=== PATIENT | male | born 1960 | race Caucasian/White ===

== ENCOUNTER 2020-05-23 08:56 | Observation (INO) | payer OTHER ==
[~2020-05-23] VITALS: Ht 185.4 cm; Wt 157.4 kg
[2020-05-23 09:31] LABS: BASOPHILS # (AUTO) 0.1 (0.0-0.1); BASOPHILS % 0.8 % (0.0-1.0); EOSINOPHILS # (AUTO) 0.1 (0.0-0.4); EOSINOPHILS % 1.2 % (0.0-6.0); HEMATOCRIT 38.5 % (38.2-49.6); HEMOGLOBIN 12.8 g/dL (14.0-18.0); LYMPHOCYTES # (AUTO) 1.4 (1.0-3.2); LYMPHOCYTES % 15.9 % (18.0-39.1); MEAN CORPUSCULAR HEMOGLOBIN 31.1 pg (28-32); MEAN CORPUSCULAR HGB CONC 33.2 g/dL (31-35); MEAN CORPUSCULAR VOLUME 93.4 fL (81-99); MONOCYTES # (AUTO) 0.5 (0.2-0.8); MONOCYTES % 5.9 % (4.4-11.3); NEUTROPHILS # (AUTO) 6.6 (2.1-6.9); NEUTROPHILS % 75.7 % (38.7-80.0); PLATELET COUNT 248 x10e3/uL (140-360); RED BLOOD COUNT 4.12 x10e6/uL (4.3-5.7)
[2020-05-23 09:47] LABS: ALBUMIN 4.1 g/dL (3.5-5.0); ALBUMIN/GLOBULIN RATIO 1.4 (0.8-2.0); ANION GAP 16.9 mmol/L (8-16); CALCIUM 9.1 mg/dL (8.4-10.2); CREATININE, SERUM 3.64 mg/dL (0.72-1.25)
[2020-05-23 09:49] LABS: POTASSIUM 2.9 mmol/L (3.5-5.1)
[2020-05-23] MEDS ORDERED: POTASSIUM CHLORIDE 20 MEQ TAB CR PO STA (10:06)
--- NOTE | 2020-05-23 10:08 | Emergency Department Note ---
History of Present Illnes History of Present Illness Chief Complaint: Respiratory History of Present Illness This is a 60 year old male arrived to the ED with 2 week history of a cough generalized malaise and weakness. Chief Complaint Comment PATIENT IN FROM HOME WITH COMPLAINTS OF SHORTNESS OF BREATH AT REST AND COUGH X 2 WEEKS; STATES THAT HE HAS AFIB, HTN, AND AN ENLARGED HEART SO HAS HAD SHORTNESS OF BREATH ON EXERTION X 1 YEAR. PATIENT APPEARS IN NO DSITRESS, TACHYPNEIC AND TACHYCARDIC IN TRIAGE, DENIES PAIN Historian: Patient Arrival Mode: Car Onset (how long ago): day(s) Radiation: Reports non-radiation Onset quality: gradual Duration (how long): week(s) Timing of current episode: constant Progression: worsening Chronicity: recurrent Exacerbating factors: movement Associated symptoms: Reports cough, Reports fever/chills, Reports headaches Past Medical/Family History Physician Review I have reviewed the patient's past medical and family history. Any updates have been documented here. Past Medical History Recent Fever: No Clinical Suspicion of Infectio: Yes New/Unexplained Change in Ment: No Past Medical History: Hypertension, A-Fib, Osteoarthritis Other Medical History: GOUT ENLARGED HEART Past Surgical History: None Social History Smoking Cessation: Never Smoker Review of Systems Review of Systems Constitutional: Reports as per HPI, Reports fever EENTM: Reports no symptoms Cardiovascular: Reports no symptoms Respiratory: Reports as per HPI Gastrointestinal: Reports no symptoms Genitourinary: Reports no symptoms Musculoskeletal: Reports no symptoms Integumentary: Reports no symptoms Neurological: Reports no symptoms Psychological: Reports no symptoms Endocrine: Reports no symptoms Hematological/Lymphatic: Reports no symptoms Physical Exam Related Data Allergies: Coded Allergies: No Known Allergies (Unverified , 05/23/20) Triage Vital Signs Vital Signs Date Time Temp Pulse Resp B/P (MAP) Pulse Ox O2 Delivery O2 Flow Rate FiO2 05/23/20 09:10 98.0 117 26 97/56 96 Room Air Vital signs reviewed: Yes Physical Exam CONSTITUTIONAL Constitutional: Present well-developed, Present well-nourished, Present obese HENT HENT: Present normocephalic, Present atraumatic, Present oropharynx clear/moist, Present nose normal HENT L/R: Present left ext ear normal, Present right ext ear normal EYES Eyes: Reports PERRL, Reports conjunctivae normal NECK Neck: Present ROM normal PULMONARY Pulmonary: Present effort normal, Present breath sounds normal CARDIOVASCULAR Cardiovascular: Present regular rhythm, Present heart sounds normal, Present capillary refill normal, Present normal rate GASTROINTESTINAL Abdominal: Present soft, Present nontender, Present bowel sounds normal GENITOURINARY Genitourinary: Present exam deferred SKIN Skin: Present warm, Present dry MUSCULOSKELETAL Musculoskeletal: Present ROM normal NEUROLOGICAL Neurological: Present alert, Present oriented x 3, Present no gross motor or sensory deficits PSYCHOLOGICAL Psychological: Present mood/affect normal, Present judgement normal Results Laboratory Result Diagram: 05/23/2020 05/23/20 0920 Laboratory Laboratory Tests Test 05/23/20 09:20 White Blood Count 8.64 x10e3/uL (4.8-10.8) Red Blood Count 4.12 x10e6/uL (4.3-5.7) Hemoglobin 12.8 g/dL (14.0-18.0) Hematocrit 38.5 % (38.2-49.6) Mean Corpuscular Volume 93.4 fL (81-99) Mean Corpuscular Hemoglobin 31.1 pg (28-32) Mean Corpuscular Hemoglobin Concent 33.2 g/dL (31-35) Red Cell Distribution Width 14.0 % (11.7-14.4) Platelet Count 248 x10e3/uL (140-360) Neutrophils (%) (Auto) 75.7 % (38.7-80.0) Lymphocytes (%) (Auto) 15.9 % (18.0-39.1) Monocytes (%) (Auto) 5.9 % (4.4-11.3) Eosinophils (%) (Auto) 1.2 % (0.0-6.0) Basophils (%) (Auto) 0.8 % (0.0-1.0) Neutrophils # (Auto) 6.6 (2.1-6.9) Lymphocytes # (Auto) 1.4 (1.0-3.2) Monocytes # (Auto) 0.5 (0.2-0.8) Eosinophils # (Auto) 0.1 (0.0-0.4) Basophils # (Auto) 0.1 (0.0-0.1) Absolute Immature Granulocyte (auto 0.04 x10e3/uL (0-0.1) Sodium Level 138 mmol/L (136-145) Potassium Level 2.9 mmol/L (3.5-5.1) Chloride Level 98 mmol/L (98-107) Carbon Dioxide Level 26 mmol/L (22-29) Anion Gap 16.9 mmol/L (8-16) Blood Urea Nitrogen 46 mg/dL (7-26) Creatinine 3.64 mg/dL (0.72-1.25) Estimat Glomerular Filtration Rate 17 ML/MIN (60-) BUN/Creatinine Ratio 13 (6-25) Glucose Level 216 mg/dL (74-118) Calcium Level 9.1 mg/dL (8.4-10.2) Total Bilirubin 0.9 mg/dL (0.2-1.2) Aspartate Amino Transf (AST/SGOT) 13 IU/L (5-34) Alanine Aminotransferase (ALT/SGPT) 13 IU/L (0-55) Alkaline Phosphatase 45 IU/L (40-150) Creatine Kinase 41 IU/L (30-200) Total Protein 7.1 g/dL (6.5-8.1) Albumin 4.1 g/dL (3.5-5.0) Globulin 3.0 g/dL (2.3-3.5) Albumin/Globulin Ratio 1.4 (0.8-2.0) Imaging Imaging results reviewed: Yes Impressions IMPRESSION: No focal pneumonia or pulmonary edema. Signed by: Catie Navarro MD on 05/23/2020 10:12 AM Procedures 12 Lead ECG Interpretation ECG Interpretation : ECG: ECG 1 Industrial Editor: Interpreted by ED physician Prior ECG tracings: reviewed Rhythm: atrial fibrillation QRS axis: normal Clinical Impression: abnormal ECG Assessment & Plan Medical Decision Making MDM 60-year-old male arrives the ED two-week history of cough chest pain generalized malaise/shortness of breath. Patient required 2 L supplement oxygen. Concerns of possible PE. Patient's VQ scan pending. Patient admitted to Dr. Mathew for follow -up VQ scan and cardiac markers. Assessment & Plan Final Impression: (1) Dyspnea (2) Chest pain Depart Disposition: ADMITTED Last Vital Signs Date Time Temp Pulse Resp B/P (MAP) Pulse Ox O2 Delivery O2 Flow Rate FiO2 05/23/20 09:10 98.0 117 26 97/56 96 Room Air MARTINE MUJICA DO May 23, 2020 10:09
[2020-05-23] MEDS ORDERED: POTASSIUM CHLORIDE 10MEQ/100ML 100 ML IV ONE (10:15)
--- NOTE | 2020-05-23 10:15 | Diagnostic Imaging Report ---
EXAMINATION: CHEST SINGLE (PORTABLE) INDICATION: Shortness of breath COMPARISON: None FINDINGS: LINES/TUBES:None LUNGS:The lungs are well-inflated. No focal consolidation or pulmonary edema. PLEURA:No pleural effusion or pneumothorax. MEDIASTINUM:The cardiomediastinal silhouette appears normal in size and shape. BONES/SOFT TISSUES:No acute osseous injury. ABDOMEN:No free air under the diaphragm. IMPRESSION: No focal pneumonia or pulmonary edema. Signed by: Catie Navarro MD on 05/23/2020 10:12 AM
[2020-05-23] MEDS ORDERED: SODIUM CHLORIDE 0.9% 1000ML 1,000 ML IV STA (10:26)
--- NOTE | 2020-05-23 18:46 | Diagnostic Imaging Report ---
Perfusion Lung Scan NOTE: Lung ventilation studies with xenon are not being performed per the recommendation of the Society of Nuclear Medicine and Molecular Imaging. It is not possible to be certain that the ventilation system is adequately disinfected. Ventilation studies with Tc-99m DTPA particles is contraindicated because the delivery by nebulization generates too many water droplets from the patient's airway. Clinical Information: Shortness of breath Comparison: Chest radiograph Discussion: Ventilation images were not obtained. See note above. Perfusion images of the lungs were obtained in multiple projections following intravenous administration of approximately 6.6 mCi of Tc-99m MAA. Distribution of tracer is irregular throughout the lungs. There are no segmental perfusion defects of any size. The cardiomediastinal silhouette is unremarkable. Impression: 1. Scan findings represent a VERY LOW probability for acute pulmonary embolic disease based on the perfusion-only PIOPED II criteria. 2. Scan findings are compatible with diffuse parenchymal and/or obstructive lung disease. Signed by: Dr. Nancy Samuel M.D. on 05/23/2020 6:42 PM
[2020-05-23 20:00] VITALS: BP 143/75
[2020-05-23] MEDS ORDERED: ALLOPURINOL100 MG PO (20:15)
[2020-05-23] MEDS ORDERED: ELIQUIS5 MG PO (20:15)
[2020-05-23] MEDS ORDERED: LO-DOSE ASPIRIN81 MG PO (20:15)
[2020-05-23] MEDS ORDERED: LISINOPRIL-HCT1 EAC2 PO (20:15)
[2020-05-23 20:18] VITALS: BP 125/84
[2020-05-23 21:34] VITALS: BP 143/75
[2020-05-23] MEDS ORDERED: HYDRALAZINE HCL25 MG PO (21:50)
[2020-05-24] VITALS (7 sets, daily range): BP systolic 111–158; BP diastolic 60–96
[2020-05-24 00:15] LABS: CREATINE KINASE MB 2.6 ng/mL (0-5.0)
[2020-05-24 05:13] LABS: BASOPHILS % 0.6 % (0.0-1.0); EOSINOPHILS # (AUTO) 0.2 (0.0-0.4); EOSINOPHILS % 2.4 % (0.0-6.0); HEMATOCRIT 35.4 % (38.2-49.6); HEMOGLOBIN 11.9 g/dL (14.0-18.0); LYMPHOCYTES # (AUTO) 1.3 (1.0-3.2); LYMPHOCYTES % 19.4 % (18.0-39.1); MEAN CORPUSCULAR HEMOGLOBIN 32.1 pg (28-32); MEAN CORPUSCULAR HGB CONC 33.6 g/dL (31-35); MEAN CORPUSCULAR VOLUME 95.4 fL (81-99); MONOCYTES # (AUTO) 0.6 (0.2-0.8); MONOCYTES % 9.3 % (4.4-11.3); NEUTROPHILS # (AUTO) 4.4 (2.1-6.9); NEUTROPHILS % 67.8 % (38.7-80.0); PLATELET COUNT 185 x10e3/uL (140-360); RED BLOOD COUNT 3.71 x10e6/uL (4.3-5.7); RED CELL DISTRIBUTION WIDTH 13.9 % (11.7-14.4)
[2020-05-24 05:38] LABS: ALBUMIN 3.7 g/dL (3.5-5.0); ALBUMIN/GLOBULIN RATIO 1.3 (0.8-2.0); ANION GAP 13.2 mmol/L (8-16); CALCIUM 8.7 mg/dL (8.4-10.2); CREATININE, SERUM 2.5 mg/dL (0.72-1.25); POTASSIUM 3.2 mmol/L (3.5-5.1)
[2020-05-24 08:54] LABS: CREATINE KINASE MB 2.4 ng/mL (0-5.0)
[2020-05-24] MEDS ORDERED: PNEUMOCOCCAL VACCINE POLYVALENT 23 MCG/0.5 ML VIAL IM SCH (10:00)
[2020-05-24] MEDS ORDERED: INFLUENZA VIRUS VAC SPLIT INJ 0.5 ML SYR IM SCH (10:00)
[2020-05-24] MEDS: HYDRALAZINE HCL 100 MG TABLET PO SCH ×2 (15:46→21:45)
[2020-05-24] MEDS: APIXAB 2.5 MG TABLET PO SCH (15:47)
[2020-05-24 16:40] LABS: BILIRUBIN,URINE NEGATIVE (NEGATIVE); CLARITY,URINE CLEAR (CLEAR); COLOR,URINE YELLOW (YELLOW); KETONES,URINE NEGATIVE (NEGATIVE); LEUKOCYTE ESTERASE ,URINE NEGATIVE (NEGATIVE); NITRITE,URINE NEGATIVE (NEGATIVE); PROTEIN,URINE DIPSTICK NEGATIVE (NEGATIVE); URINE UROBILINOGEN 0.2 mg/dL (0.2 - 1)
[2020-05-24 16:50] LABS: CREATININE,URINE RANDOM 116.83 mg/dL (63-166); TOTAL PROTEIN, URINE 8.5 mg/dL (1-14)
[2020-05-24] MEDS ORDERED: APIXABAN 5 MG TABLET PO SCH (17:00)
--- NOTE | 2020-05-24 17:37 | Consultation ---
DATE OF CONSULTATION: Cardiology Consult HISTORY OF PRESENT ILLNESS: A 60-year-old male with primary history of hypertension, chronic atrial fibrillation (on apixaban), CKD, and obesity, admitted complaining of shortness of breath, worsens with activities, accompanied with chest pressure, palpitations, dizziness, and near syncope. The patient denies having any GI symptoms. The patient reports he had cardiac cath 10 years ago and the last time he was told that he has cardiomegaly/enlarged heart. The patient last seen his bomb squad officer about a year ago and failed to make followup appointments after that. PAST MEDICAL HISTORY: Hypertension, chronic atrial fibrillation, CKD, and obesity. PAST SURGICAL HISTORY: Denies any cardiac procedures or any cardiac intervention. FAMILY HISTORY: Positive for heart disease. SOCIAL HISTORY: The patient is a nonsmoker. No alcohol use or any illicit drug use. ALLERGIES: NO KNOWN DRUG ALLERGIES. HOME MEDICATIONS: Apixaban 5 mg p.o. b.i.d., aspirin 81 mg p.o. daily, hydralazine 100 mg p.o. t.i.d., lisinopril one tablet 10 mg p.o. b.i.d., and allopurinol 200 mg p.o. b.i.d. REVIEW OF SYSTEMS: Negative except those mentioned above. PHYSICAL EXAMINATION: VITAL SIGNS: 98.3 temperature, 88 pulse, respiratory rate 20, blood pressure is 142/94, and pulse oximetry 100% on room air. GENERAL: The patient is well developed, well nourished, in no acute respiratory distress. SKIN: Normal in appearance and texture. Warm and dry. HEENT: The patient's cranium is normocephalic and atraumatic. Pupils are equally round and reactive to light and accommodation. Sclerae anicteric. Ears are normal. Mucosa is moist. Throat is clear. NECK: Supple. Full range of motion. No cervical lymphadenopathy. No thyromegaly. Carotid artery upstroke is normal bilaterally without bruits. No JVD. RESPIRATORY: Normal respiratory effort at rest. LUNGS: Clear to auscultation bilaterally. No wheezing, no rales, or rhonchi. Diminished breath sounds or decreased air entry at the bases. CARDIOVASCULAR: S1 and S2 audible. Irregular rate. No significant murmurs heard. GI: Soft, nontender, and nondistended. Obese. Bowel sounds are present. EXTREMITIES: No edema. No clubbing or cyanosis. NEUROVASCULAR: Motor is intact. Pulses are palpable 1+ throughout. NEUROLOGIC: Motor and sensory examination of the upper and lower extremities are normal. Reflexes are normal and symmetrical bilaterally. LABORATORY DATA: WBC 6.55, hemoglobin 11.9, hematocrit 35.4, MCHC 32.1. Chemistry; sodium is 142, potassium is 3.2, BUN is 40, creatinine is 3.64 on admission. CK-MB 2.40. Troponin 0.018, 0.015, 0.013. Albumin is 4.1 and total protein 7.1. Estimated GFR 17. V/Q scan results, findings negative for pulmonary embolic disease and scan findings are compatible with diffuse parenchymal and/or obstructive lung disease. ASSESSMENT AND PLAN: The patient is admitted with dyspnea and worsening renal function (creatinine is equal to 3.64). The patient is currently on atrial fibrillation with controlled ventricular response. Troponin is negative. 1. Monitor on telemetry. Monitor hemodynamics. 2. Restart cardiac medications and anticoagulation with apixaban. 3. Obtain baseline EKG and obtain echocardiogram to evaluate valves and LV function. 4. Obesity. Counseled on weight loss. 5. Proceed with Nephrology consult. 6. We will continue to evaluate for any further need of any cardiac intervention. We will continue to follow. Thank you for this consultation. Dictated by Alma Abrams NP MD ARUNA Calixto/FRANK /[id number]
[2020-05-24] MEDS ORDERED: ACETAMINOPHEN 325 MG TAB PO PRN (23:45)
[2020-05-25] VITALS: BP 118/79
[2020-05-25 04:00] VITALS: BP 127/81
[2020-05-25] MEDS: HYDRALAZINE HCL 100 MG TABLET PO SCH (05:03)
[2020-05-25 05:26] LABS: BASOPHILS % 0.5 % (0.0-1.0); EOSINOPHILS # (AUTO) 0.2 (0.0-0.4); EOSINOPHILS % 2.5 % (0.0-6.0); HEMATOCRIT 34.7 % (38.2-49.6); HEMOGLOBIN 11.8 g/dL (14.0-18.0); LYMPHOCYTES # (AUTO) 1.4 (1.0-3.2); MEAN CORPUSCULAR HEMOGLOBIN 33.1 pg (28-32); MEAN CORPUSCULAR VOLUME 97.2 fL (81-99); MONOCYTES # (AUTO) 0.7 (0.2-0.8); MONOCYTES % 9.2 % (4.4-11.3); NEUTROPHILS % 68.4 % (38.7-80.0); PLATELET COUNT 166 x10e3/uL (140-360); RED BLOOD COUNT 3.57 x10e6/uL (4.3-5.7); RED CELL DISTRIBUTION WIDTH 14.1 % (11.7-14.4)
[2020-05-25 05:50] LABS: CALCIUM 8.9 mg/dL (8.4-10.2); CREATININE, SERUM 2.01 mg/dL (0.72-1.25)
[2020-05-25 06:18] LABS: ANION GAP 15.1 mmol/L (8-16)
[2020-05-25 06:27] LABS: POTASSIUM 4.1 mmol/L (3.5-5.1)
--- NOTE | 2020-05-25 06:48 | Consultation ---
DATE OF CONSULTATION: 05/24/2020 Nephrology Consultation CHIEF COMPLAINT: Chest pain. REASON FOR CONSULTATION: TAM on CKD. HISTORY OF PRESENT ILLNESS: A 60-year-old male, morbidly obese with history of hypertension, sees a lead business systems analyst at [facility], presents to the ED with complaints of chest pain morbidly obese is the cause of his CKD. No history of diabetes. No kxwy-tep-scigrpr medications. No NSAIDs. No herbal supplements. No chronic urinary tract infections. No kidney stones. No family history of renal disease. The patient is seen and evaluated at bedside on the medical floor. He is currently doing well with no other issues at this time. REVIEW OF SYSTEMS: Pertinent positives: Chest pain. The rest of the 14-point review of systems has been reviewed with the patient and are negative. ALLERGIES: NO KNOWN DRUG ALLERGIES. HOME MEDICATIONS: See med reconciliation form. PAST MEDICAL HISTORY: Hypertension and morbidly obese. PAST SURGICAL HISTORY: Reports none. FAMILY HISTORY: Hypertension and diabetes. SOCIAL HISTORY: No drugs. No alcohol. Does not smoke. Good social support. PHYSICAL EXAMINATION: VITAL SIGNS: Temperature 97.9, pulse , respiratory rate is 18, blood pressure 121/80, and pulse ox on room air. GENERAL: Not in acute distress. Alert and oriented x3. Cooperative on examination. HEENT: Head; normocephalic, atraumatic. Eyes; pupils are equal, round, and reactive to light bilaterally. Extraocular movements intact bilaterally. PULMONARY: Clear to auscultation bilaterally. No wheezing, no rales, no rhonchi, no crackles appreciated. CARDIOVASCULAR: Positive S1 and S2. No murmurs, rubs, or gallops appreciated. ABDOMEN: Soft, nondistended, and nontender to palpation. Bowel sounds present. MUSCULOSKELETAL: Strength is 5/5 throughout. No evidence of any muscle deficits on examination. SKIN: Intact. Warm to touch. Good cap refill. PSYCHIATRIC: Normal affect and mood. LABORATORY DATA: Finding show white count 6.5, hemoglobin 11.9, hematocrit 35, platelets of 185. Chemistry; sodium 142, potassium 3.2, chloride 103, bicarb 29, anion gap 13, BUN is 40, creatinine is 2.5, glucose is 101, calcium is within normal range. Troponins are negative. Total protein 6.6. Urinalysis was negative. SEROLOGY: Coronavirus not detected. IMAGING STUDIES: V/Q scan revealed low probability for pulmonary embolism. Chest x-ray negative. IMPRESSION: 1. Acute kidney injury on chronic kidney disease, stage 3. 2. History of longstanding hypertension. 3. Morbidly obese. PLAN: At this time, the patient does see a kidney doctor in [place], in which he reports that his underlying CKD is from hypertension and morbid obesity. At this time, his renal function downtrended with IV fluids. Electrolytes are stable. No need to get a renal ultrasound as he has had this done before. I will go ahead and get a urine protein to creatinine, microalbumin to creatinine ratio. I discussed the plan of care with the patient at bedside and he verbalized understanding. MD DEISI Sotomayor/FRANK /[id number]
--- NOTE | 2020-05-25 07:06 | NUR ---
Notified Moni Dumas NP that today is Day 2 Obs. She stated Jaida SMITH will be seeing pt today, and she will notify her and give her CM cell.
[2020-05-25 07:36] VITALS: BP 131/79
[2020-05-25 07:49] VITALS: BP 131/79
--- NOTE | 2020-05-25 08:17 | NUR ---
BELTRAN BEE STOCK SUPERVISOR CALLED AND STATED SHE CONSULTED DR. Sadi PEREZ AND DR. LINDO. SHE PLANS TO DC HOME LATER TODAY, PENDING THE CONSULTS EVAL FINDINGS AND PLAN.
[2020-05-25] MEDS: APIXAB 2.5 MG TABLET PO SCH (08:36)
[2020-05-25] MEDS ORDERED: FAMOTIDINE 20 MG TAB PO ONE (09:00)
[2020-05-25] MEDS ORDERED: ASPIRIN 81 MG ENTERIC COATED PO SCH (09:00)
[2020-05-25 09:24] VITALS: BP 131/79
[2020-05-25 11:25] VITALS: BP 149/90
--- NOTE | 2020-05-25 15:41 | Discharge Summary ---
CONSULTING PHYSICIANS: 1. Dr. Otf Dahl, metal mine inspector. 2. Dr. Taylor Hernandez, mainspring fabrication supervisor. PAST MEDICAL HISTORY: Hypertension and morbid obese, chronic atrial fibrillation, and chronic kidney disease stage 3. SURGICAL HISTORY: None. FAMILY HISTORY: Hypertension and diabetes. ALLERGIES: NO KNOWN ALLERGIES. HOSPITAL COURSE: This is a 60-year-old male, morbidly obese with history of hypertension, chronic atrial fibrillation on Eliquis, chronic kidney disease stage 3, got admitted with complaints of shortness of breath, worsening with activities, complaining of a chest pressure, palpitation, dizziness, and near syncope. The patient has been evaluated by the metal mine inspector and mainspring fabrication supervisor. His echo on 05/24/2020 shows EF of 55%. The patient has been cleared for discharge by metal mine inspector and mainspring fabrication supervisor. Vital signs include temperature of 97.8, heart rate of 82, blood pressure of 149/90, respiratory rate of 20, and oxygen saturation 100% on room air. DISCHARGE DIAGNOSES: 1. Hypertension. 2. Chronic atrial fibrillation. 3. Chronic kidney disease, stage 3. 4. Morbid obesity. I advised the patient to follow up with primary care physician, Cardiology and Nephrology as an outpatient in 1-2 weeks, also advised diet management. Dictated by Jaida Parker NP MD CARLITO Michaels/FRANK /[id number]
--- NOTE | 2020-05-26 03:42 | Progress Note ---
DATE: 05/25/2020 Nephrology Progress Note SUBJECTIVE: The patient doing well today with no complaints. LABORATORY DATA: CBC stable. Chemistry shows sodium 144, potassium 4.1, chloride 102, bicarb 21. Anion gap of 15. BUN is 34, creatinine is 2.01. Calcium is 8.9. Troponins are negative. IMAGING STUDIES: None. PHYSICAL EXAMINATION: VITAL SIGNS: Afebrile, normotensive, respiratory rate is good. GENERAL: Not in acute distress. Alert and oriented x3. Cooperative on examination. HEENT: Head; normocephalic, atraumatic. Eyes; pupils are equal, round, and reactive to light bilaterally. Extraocular movements intact bilaterally. Throat, no evidence of erythema or exudates in the posterior pharynx. Has poor dentition. NECK: Supple. Good range of motion. PULMONARY: Clear to auscultation bilaterally. No wheezing, no rales, no rhonchi, no crackles are appreciated. CARDIOVASCULAR: Positive S1, S2. No murmurs, rubs, or gallops appreciated. GASTROINTESTINAL: Abdomen is soft, nontender, nondistended to palpation. Bowel sounds are present. MUSCULOSKELETAL: Strength is 5/5 throughout. No evidence of any muscle deficits on examination. IMPRESSION: 1. Acute kidney injury, secondary to dehydration with underlying chronic kidney disease, stage 3. 2. Hypertension, longstanding. 3. Chest pain, atypical in nature. 4. Morbidly obese. PLAN: At this time, renal function down trending, back to his normal. He is currently at his bedside. Currently, his creatinine is at baseline. Electrolytes are stable. Continue same plan of care. Follow up with his primary core man. No further workup needed. MD DEISI Sotomayor/CESARIOL /[id number]
== END 2020-05-25 14:34 | disposition home or self-care (01) ==
LOC: ER 09:52 → ERHOLD 16:21 → MED/SURG 20:07
PROVIDERS: ADMIT Internal Medicine; ATTEND Internal Medicine
DX: I12.9 Hypertensive chronic kidney disease with stage 1 through stage 4 chronic kidney disease, or unspecified chronic kidney disease (principal); E66.01 Morbid (severe) obesity due to excess calories; Z68.42 Body mass index [BMI] 45.0-49.9, adult; N18.3 Chronic kidney disease, stage 3 (moderate); N17.9 Acute kidney failure, unspecified; I48.20 Chronic atrial fibrillation, unspecified; Z79.01 Long term (current) use of anticoagulants; J43.9 Emphysema, unspecified; Z11.59 Encounter for screening for other viral diseases
CPT/HCPCS: 36415 ×3; 71045; 78582; 80048; 80053 ×2; 81001; 82550 ×2; 82553 ×2; 82570; 83880; 84156; 84484 ×2; 85025 ×3; 93005 ×2; 93306; 99284; A9540; G0378 ×3; J3480; J7030; U0002

== ENCOUNTER 2021-02-24 14:06 | Emergency (ER) | payer BC ==
[~2021-02-24 14:06] MED LIST: ALLOPURINOL100 MG PO; ELIQUIS5 MG PO; HYDRALAZINE HCL25 MG PO; LISINOPRIL-HCT1 EAC2 PO; LO-DOSE ASPIRIN81 MG PO
[2021-02-24 14:38] LABS: BASOPHILS # (AUTO) 0.1 (0.0-0.1); BASOPHILS % 0.8 % (0.0-1.0); EOSINOPHILS # (AUTO) 0.2 (0.0-0.4); EOSINOPHILS % 1.9 % (0.0-6.0); HEMATOCRIT 43.3 % (38.2-49.6); HEMOGLOBIN 14.3 g/dL (14.0-18.0); LYMPHOCYTES # (AUTO) 1.1 (1.0-3.2); LYMPHOCYTES % 12.6 % (18.0-39.1); MEAN CORPUSCULAR HEMOGLOBIN 30.2 pg (28-32); MEAN CORPUSCULAR VOLUME 91.5 fL (81-99); MONOCYTES # (AUTO) 0.6 (0.2-0.8); MONOCYTES % 6.7 % (4.4-11.3); NEUTROPHILS # (AUTO) 6.5 (2.1-6.9); NEUTROPHILS % 77.6 % (38.7-80.0); PLATELET COUNT 204 x10e3/uL (140-360); RED BLOOD COUNT 4.73 x10e6/uL (4.3-5.7); RED CELL DISTRIBUTION WIDTH 13.5 % (11.7-14.4)
[2021-02-24 14:46] LABS: INR 0.98; PARTIAL THROMBOPLASTIN TIME 27.8 seconds (23.8-35.5); PROTHROMBIN TIME 13.6 seconds (11.9-14.5)
[2021-02-24 14:55] LABS: ALBUMIN 3.6 g/dL (3.5-5.0); ALBUMIN/GLOBULIN RATIO 0.9 (0.8-2.0); ANION GAP 13.6 mmol/L (8-16); CREATININE, SERUM 2.05 mg/dL (0.72-1.25); POTASSIUM 3.6 mmol/L (3.5-5.1)
== END 2021-02-24 19:00 | disposition home or self-care (01) ==
LOC: ER 14:06
DX: R55 Syncope and collapse (principal); R06.02 Shortness of breath; R42 Dizziness and giddiness; R53.83 Other fatigue; I48.91 Unspecified atrial fibrillation; N18.9 Chronic kidney disease, unspecified
CPT/HCPCS: 36415; 70450; 71045; 80053; 83880; 84484; 85025; 85610; 85730; 93005; 99284

== ENCOUNTER 2021-07-21 09:26 | Emergency (ER) | payer OTHER ==
[~2021-07-21] VITALS: Ht 185.4 cm; Wt 157.4 kg
[2021-07-21] MEDS ORDERED: PROVENTIL HFA6.7 GM INH (11:11)
== END 2021-07-21 11:18 | disposition home or self-care (01) ==
LOC: ER 09:36
DX: R05.9 Cough, unspecified (principal); J06.9 Acute upper respiratory infection, unspecified; I10 Essential (primary) hypertension; I50.9 Heart failure, unspecified; I48.91 Unspecified atrial fibrillation; N18.9 Chronic kidney disease, unspecified; M10.9 Gout, unspecified; M54.9 Dorsalgia, unspecified; G89.29 Other chronic pain
CPT/HCPCS: 71046; 87400; 99284; U0002

== ENCOUNTER 2022-11-11 08:25 | Inpatient (IN) | payer OTHER ==
[~2022-11-11] VITALS: Ht 185.4 cm; Wt 157.4 kg
[~2022-11-11 08:25] MED LIST changes: +PROVENTIL HFA6.7 GM INH
[2022-11-11] MEDS ORDERED: ONDANSETRON HCL INJ 2MG/ML 2ML 2 MG/ML VIAL IV STA (08:44)
[2022-11-11] MEDS ORDERED: Morphine 2mg Syringe 2 MG/ML SYR IV STA (08:44)
[2022-11-11] MEDS ORDERED: NITROGLYCERIN 2% OINT 1 GM PKT TOP ONE (08:45)
[2022-11-11] MEDS ORDERED: ASPIRIN 81 MG CHEW TAB PO ONE (08:45)
[2022-11-11 08:55] LABS: BASOPHILS % 0.6 % (0.0-1.0); EOSINOPHILS # (AUTO) 0.1 (0.0-0.4); EOSINOPHILS % 0.7 % (0.0-6.0); HEMATOCRIT 44.1 % (38.2-49.6); HEMOGLOBIN 14.1 g/dL (14.0-18.0); LYMPHOCYTES # (AUTO) 0.9 (1.0-3.2); LYMPHOCYTES % 13.1 % (18.0-39.1); MEAN CORPUSCULAR HEMOGLOBIN 28.9 pg (28-32); MEAN CORPUSCULAR VOLUME 90.4 fL (81-99); MONOCYTES # (AUTO) 0.5 (0.2-0.8); MONOCYTES % 7.6 % (4.4-11.3); NEUTROPHILS # (AUTO) 5.4 (2.1-6.9); NEUTROPHILS % 77.7 % (38.7-80.0); PLATELET COUNT 189 x10e3/uL (140-360); RED BLOOD COUNT 4.88 x10e6/uL (4.3-5.7); RED CELL DISTRIBUTION WIDTH 14.1 % (11.7-14.4)
[2022-11-11 09:18] LABS: INR 1.11; PROTHROMBIN TIME 14.5 seconds (11.9-14.5)
[2022-11-11 09:19] LABS: PARTIAL THROMBOPLASTIN TIME 30.9 seconds (23.8-35.5)
[2022-11-11] MEDS ORDERED: ZOLOFT100 MG PO (09:22)
[2022-11-11] MEDS ORDERED: ABILIFY5 MG PO (09:23)
[2022-11-11] MEDS ORDERED: PANTOPRAZOLE SO40 MG PO (09:27)
[2022-11-11] MEDS ORDERED: LIPITOR10 MG PO (09:27)
[2022-11-11] MEDS ORDERED: BUSPIRONE HCL15 MG PO (09:27)
[2022-11-11 09:28] LABS: ALANINE AMINOTRANSFERASE 37 IU/L (0-55); ALBUMIN 3.9 g/dL (3.5-5.0); ALKALINE PHOSPHATASE 74 IU/L (40-150); ANION GAP 15.6 mmol/L (8-16); BLOOD UREA NITROGEN 17 mg/dL (7-26); BUN/CREATININE RATIO 9 (6-25); CALCIUM 9.3 mg/dL (8.4-10.2); CARBON DIOXIDE 25 mmol/L (22-29); CHLORIDE 105 mmol/L (98-107); CREATINE KINASE 42 IU/L (30-200); CREATININE, SERUM 1.91 mg/dL (0.72-1.25); GLUCOSE 141 mg/dL (74-118); MAGNESIUM 1.9 MG/DL (1.3-2.1); POTASSIUM 3.6 mmol/L (3.5-5.1); SODIUM 142 mmol/L (136-145)
[2022-11-11] MEDS ORDERED: DILTIAZEM HCL 30 MG TAB PO ONE (09:30)
[2022-11-11] MEDS ORDERED: CLOPIDOGREL BISULFATE 75 MG TAB PO ONE (09:30)
[2022-11-11] MEDS ORDERED: NITROGLYCERIN 0.4 MG SUBL SL PRN (10:15)
[2022-11-11] MEDS ORDERED: Morphine 2mg Syringe 2 MG/ML SYR IV PRN (10:15)
[2022-11-11] MEDS ORDERED: ONDANSETRON HCL INJ 2MG/ML 2ML 2 MG/ML VIAL IV PRN (10:15)
[2022-11-11] MEDS: FAMOTIDINE 20 MG/2 ML VIAL IV SCH ×2 (11:28→22:17)
[2022-11-11] MEDS ORDERED: NITROGLYCERIN 2% OINT 1 GM PKT TOP SCH (12:00)
[2022-11-11 13:23] LABS: CREATINE KINASE MB 1.5 ng/mL (0-5.0)
[2022-11-11 14:25] VITALS: BP 135/95
[2022-11-11 14:37] VITALS: BP 135/95
[2022-11-11] MEDS ORDERED: METOPROLOL TARTRATE INJ 1 MG/ML VIAL IV PRN (15:30)
[2022-11-11] MEDS ORDERED: ACETAMINOPHEN 325 MG TAB PO PRN (15:30)
[2022-11-11] MEDS ORDERED: POLYETHYLENE GLYCOL 3350 17 GM PACK PO PRN (15:30)
[2022-11-11 16:21] VITALS: BP 129/77
[2022-11-11] MEDS: SERTRALINE HCL 100 MG TAB PO SCH (17:00)
[2022-11-11] MEDS: APIXABAN 5 MG TABLET PO SCH (17:00)
[2022-11-11] MEDS: DOCUSATE SODIUM 100 MG CAP PO SCH (17:00)
[2022-11-11] MEDS ORDERED: NON-FORMULARY MEDICATION (Buspirone Hcl 15 MG) PO SCH (17:00)
[2022-11-11 20:00] VITALS: BP 131/90
[2022-11-11 20:52] LABS: CREATINE KINASE MB 2.5 ng/mL (0-5.0)
[2022-11-11] MEDS: ATORVASTATIN 40 MG TAB PO SCH (22:18)
[2022-11-11] MEDS: BUSPIRONE HCL 5 MG TAB PO SCH (22:18)
[2022-11-12] VITALS: BP 135/90
[2022-11-12 01:13] LABS: CREATINE KINASE MB 2.3 ng/mL (0-5.0)
[2022-11-12 04:00] VITALS: BP 151/85
[2022-11-12 05:00] LABS: BASOPHILS # (AUTO) 0.1 (0.0-0.1); EOSINOPHILS # (AUTO) 0.2 (0.0-0.4); EOSINOPHILS % 2.4 % (0.0-6.0); HEMATOCRIT 40.2 % (38.2-49.6); HEMOGLOBIN 12.6 g/dL (14.0-18.0); LYMPHOCYTES # (AUTO) 0.7 (1.0-3.2); LYMPHOCYTES % 10.4 % (18.0-39.1); MEAN CORPUSCULAR HEMOGLOBIN 28.6 pg (28-32); MEAN CORPUSCULAR HGB CONC 31.3 g/dL (31-35); MEAN CORPUSCULAR VOLUME 91.2 fL (81-99); MONOCYTES # (AUTO) 0.7 (0.2-0.8); MONOCYTES % 9.3 % (4.4-11.3); NEUTROPHILS # (AUTO) 5.4 (2.1-6.9); NEUTROPHILS % 76.5 % (38.7-80.0); PLATELET COUNT 188 x10e3/uL (140-360); RED BLOOD COUNT 4.41 x10e6/uL (4.3-5.7); RED CELL DISTRIBUTION WIDTH 13.8 % (11.7-14.4)
[2022-11-12 05:35] LABS: ALBUMIN 3.2 g/dL (3.5-5.0); ALBUMIN/GLOBULIN RATIO 0.9 (0.8-2.0); ANION GAP 11.7 mmol/L (8-16); CALCIUM 8.7 mg/dL (8.4-10.2); CHOL/HDL RATIO 4.1 (3.9-4.7); CREATININE, SERUM 1.69 mg/dL (0.72-1.25); POTASSIUM 3.7 mmol/L (3.5-5.1)
[2022-11-12 06:00] LABS: PHOSPHORUS 3.3 MG/DL (2.3-4.7)
[2022-11-12 06:22] LABS: THYROID STIMULATING HORMONE 0.751 uIU/mL (0.350-4.940)
[2022-11-12] MEDS ORDERED: REGADENOSON 0.4 MG/5 ML SYR IV ONE (08:44)
[2022-11-12] MEDS ORDERED: ASPIRIN 325 MG TAB EC PO SCH (09:00)
[2022-11-12] MEDS ORDERED: NON-FORMULARY MEDICATION (Aripiprazole (Abilify) 5 MG) PO SCH (09:00)
[2022-11-12] MEDS: ARIPIPRAZOLE 5 MG TABLET PO SCH ×3 (09:00→12:07)
[2022-11-12] MEDS: SERTRALINE HCL 100 MG TAB PO SCH ×2 (09:00→17:09)
[2022-11-12] MEDS: CLOPIDOGREL BISULFATE 75 MG TAB PO SCH ×3 (09:00→12:07)
[2022-11-12] MEDS: DOCUSATE SODIUM 100 MG CAP PO SCH (09:00)
[2022-11-12] MEDS: BUSPIRONE HCL 5 MG TAB PO SCH ×2 (09:00→12:03)
[2022-11-12] MEDS: APIXABAN 5 MG TABLET PO SCH ×2 (09:00→12:04)
[2022-11-12 09:21] VITALS: BP 148/102
[2022-11-12] MEDS: FAMOTIDINE 20 MG/2 ML VIAL IV SCH ×2 (12:00→21:55)
[2022-11-12 12:34] VITALS: BP 153/108
[2022-11-12 16:25] VITALS: BP 177/104
[2022-11-12] MEDS ORDERED: HYDRALAZINE HCL 10 MG TAB PO PRN (16:45)
[2022-11-12] MEDS: METOPROLOL TARTRATE 25 MG TAB PO SCH (17:10)
[2022-11-12 20:00] VITALS: BP 166/99
[2022-11-12] MEDS: ATORVASTATIN 40 MG TAB PO SCH (21:55)
[2022-11-12] MEDS: LOPERAMIDE HCL 2 MG CAP PO PRN (22:02)
[2022-11-13] VITALS: BP 163/97
[2022-11-13 04:00] VITALS: BP 145/94
[2022-11-13 08:00] VITALS: BP 160/95
[2022-11-13 08:50] VITALS: BP 160/95
[2022-11-13] MEDS: DOCUSATE SODIUM 100 MG CAP PO SCH (09:00)
[2022-11-13] MEDS: ARIPIPRAZOLE 5 MG TABLET PO SCH (10:00)
[2022-11-13] MEDS: APIXABAN 5 MG TABLET PO SCH (10:00)
[2022-11-13] MEDS: BUSPIRONE HCL 5 MG TAB PO SCH (10:00)
[2022-11-13] MEDS: METOPROLOL TARTRATE 25 MG TAB PO SCH (10:00)
[2022-11-13] MEDS: CLOPIDOGREL BISULFATE 75 MG TAB PO SCH (10:00)
[2022-11-13] MEDS: LOPERAMIDE HCL 2 MG CAP PO PRN (10:28)
[2022-11-13] MEDS: FAMOTIDINE 20 MG/2 ML VIAL IV SCH (10:28)
[2022-11-13] MEDS ORDERED: ONDANSETRON HCL 4 MG ORAL DISINTEGRATING TAB SL PRN (10:30)
[2022-11-13 12:00] VITALS: BP 157/104
[2022-11-13 12:01] LABS: ANION GAP 14.6 mmol/L (8-16); CREATININE, SERUM 1.49 mg/dL (0.72-1.25); POTASSIUM 3.6 mmol/L (3.5-5.1)
[2022-11-13] MEDS ORDERED: LOPRESSOR25 MG PO (12:33)
[2022-11-13] MEDS ORDERED: Atorvastatin PO (12:33)
[2022-11-13] MEDS ORDERED: PLAVIX75 MG PO (12:51)
[2022-11-13] MEDS ORDERED: FAMOTIDINE 20 MG TAB PO SCH (21:00)
== END 2022-11-13 14:47 | disposition home or self-care (01) | DRG 683 ==
LOC: ER 08:29 → ERHOLD 10:19 → INTOOBSV 10:19 → MED/SURG2 12:47 → OBSVTOIN 11-13 09:35
PROVIDERS: ADMIT Internal Medicine; ATTEND Internal Medicine
PROC: 3E033HZ Introduction of Radioactive Substance into Peripheral Vein, Percutaneous Approach (ICD-10-PCS; principal; 2022-11-12)
PROC: 4A12XM4 Monitoring of Cardiac Stress, External Approach (ICD-10-PCS; 2022-11-12)
PROC: C22G1ZZ Tomographic (Tomo) Nuclear Medicine Imaging of Myocardium using Technetium 99m (Tc-99m) (ICD-10-PCS; 2022-11-12)
DX: N17.9 Acute kidney failure, unspecified (principal); I13.0 Hypertensive heart and chronic kidney disease with heart failure and stage 1 through stage 4 chronic kidney disease, or unspecified chronic kidney disease; I48.20 Chronic atrial fibrillation, unspecified; Z68.42 Body mass index [BMI] 45.0-49.9, adult; I50.32 Chronic diastolic (congestive) heart failure; N18.30 Chronic kidney disease, stage 3 unspecified; E11.22 Type 2 diabetes mellitus with diabetic chronic kidney disease; I25.2 Old myocardial infarction; F32.A Depression, unspecified; M54.9 Dorsalgia, unspecified; G89.29 Other chronic pain; M17.0 Bilateral primary osteoarthritis of knee; R29.6 Repeated falls; E66.01 Morbid (severe) obesity due to excess calories; K42.9 Umbilical hernia without obstruction or gangrene; H91.90 Unspecified hearing loss, unspecified ear; J45.909 Unspecified asthma, uncomplicated; M10.9 Gout, unspecified; I45.10 Unspecified right bundle-branch block; E78.5 Hyperlipidemia, unspecified; I25.10 Atherosclerotic heart disease of native coronary artery without angina pectoris; Z20.822 Contact with and (suspected) exposure to COVID-19; Z79.01 Long term (current) use of anticoagulants; Z95.5 Presence of coronary angioplasty implant and graft; Z59.6 Low income; Z79.82 Long term (current) use of aspirin; Z87.891 Personal history of nicotine dependence; Z60.2 Problems related to living alone; Z79.4 Long term (current) use of insulin
CPT/HCPCS: 0223U; 36415; 71045; 78451; 80048; 80053; 80061; 82550; 82553; 82948; 83036; 83735; 83880; 84100; 84443; 84484; 85025; 85610; 85730; 93005; 93017; 93306; 94799; 99284; A9502; G0378; J2270; J2405

== ENCOUNTER 2022-11-22 08:09 | Inpatient (IN) | payer OTHER ==
[~2022-11-22] VITALS: Ht 185.4 cm; Wt 157.4 kg
[~2022-11-22 08:09] MED LIST changes: +ABILIFY5 MG PO; +Atorvastatin PO; +BUSPIRONE HCL15 MG PO; +LIPITOR10 MG PO; +LOPRESSOR25 MG PO; +PANTOPRAZOLE SO40 MG PO; +PLAVIX75 MG PO; +ZOLOFT100 MG PO
[2022-11-22] MEDS ORDERED: CARVEDILOL 3.125 MG TAB PO ONE (08:45)
[2022-11-22 09:03] LABS: BASOPHILS # (AUTO) 0.1 (0.0-0.1); BASOPHILS % 0.6 % (0.0-1.0); EOSINOPHILS # (AUTO) 0.2 (0.0-0.4); HEMATOCRIT 43.5 % (38.2-49.6); HEMOGLOBIN 13.8 g/dL (14.0-18.0); LYMPHOCYTES # (AUTO) 1.1 (1.0-3.2); LYMPHOCYTES % 14.5 % (18.0-39.1); MEAN CORPUSCULAR HEMOGLOBIN 28.5 pg (28-32); MEAN CORPUSCULAR HGB CONC 31.7 g/dL (31-35); MEAN CORPUSCULAR VOLUME 89.7 fL (81-99); MONOCYTES # (AUTO) 0.5 (0.2-0.8); MONOCYTES % 6.2 % (4.4-11.3); NEUTROPHILS # (AUTO) 5.8 (2.1-6.9); NEUTROPHILS % 75.1 % (38.7-80.0); PLATELET COUNT 198 x10e3/uL (140-360); RED BLOOD COUNT 4.85 x10e6/uL (4.3-5.7)
[2022-11-22 09:23] LABS: INR 1.13
[2022-11-22 09:24] LABS: PARTIAL THROMBOPLASTIN TIME 32.7 seconds (23.8-35.5)
[2022-11-22 09:28] LABS: ALANINE AMINOTRANSFERASE 25 IU/L (0-55); ALBUMIN 3.4 g/dL (3.5-5.0); ALBUMIN/GLOBULIN RATIO 0.9 (0.8-2.0); ALKALINE PHOSPHATASE 86 IU/L (40-150); ANION GAP 13.2 mmol/L (8-16); BLOOD UREA NITROGEN 17 mg/dL (7-26); BUN/CREATININE RATIO 10 (6-25); CALCIUM 8.9 mg/dL (8.4-10.2); CARBON DIOXIDE 30 mmol/L (22-29); CHLORIDE 101 mmol/L (98-107); CREATINE KINASE 41 IU/L (30-200); CREATININE, SERUM 1.62 mg/dL (0.72-1.25); GLUCOSE 180 mg/dL (74-118); MAGNESIUM 1.6 MG/DL (1.3-2.1); POTASSIUM 3.2 mmol/L (3.5-5.1); SODIUM 141 mmol/L (136-145)
[2022-11-22] MEDS ORDERED: POTASSIUM CHLORIDE 20 MEQ TAB CR PO ONE (11:30)
[2022-11-22 14:33] VITALS: BP 154/91
[2022-11-22 14:45] VITALS: BP 154/91
[2022-11-22 14:59] VITALS: BP 154/91
[2022-11-22 18:14] LABS: CREATINE KINASE 44 IU/L (30-200)
[2022-11-22 18:36] LABS: CREATINE KINASE MB < 1.00 ng/mL (0-4.3)
[2022-11-22 19:30] VITALS: BP 135/78
[2022-11-23] VITALS (7 sets, daily range): BP systolic 133–160; BP diastolic 87–102
[2022-11-23] MEDS ORDERED: HYDRALAZINE HCL 25 MG TAB PO STA (00:37)
[2022-11-23 05:25] LABS: BASOPHILS # (AUTO) 0.1 (0.0-0.1); BASOPHILS % 0.7 % (0.0-1.0); EOSINOPHILS # (AUTO) 0.4 (0.0-0.4); EOSINOPHILS % 4.9 % (0.0-6.0); HEMATOCRIT 40.7 % (38.2-49.6); HEMOGLOBIN 12.9 g/dL (14.0-18.0); LYMPHOCYTES # (AUTO) 1.6 (1.0-3.2); MEAN CORPUSCULAR HEMOGLOBIN 28.4 pg (28-32); MEAN CORPUSCULAR HGB CONC 31.7 g/dL (31-35); MEAN CORPUSCULAR VOLUME 89.5 fL (81-99); MONOCYTES # (AUTO) 0.6 (0.2-0.8); MONOCYTES % 8.6 % (4.4-11.3); NEUTROPHILS # (AUTO) 4.5 (2.1-6.9); NEUTROPHILS % 63.2 % (38.7-80.0); PLATELET COUNT 200 x10e3/uL (140-360); RED BLOOD COUNT 4.55 x10e6/uL (4.3-5.7); RED CELL DISTRIBUTION WIDTH 13.7 % (11.7-14.4)
[2022-11-23 06:01] LABS: ALBUMIN 3.1 g/dL (3.5-5.0); ALBUMIN/GLOBULIN RATIO 0.9 (0.8-2.0); ANION GAP 12.4 mmol/L (8-16); CALCIUM 8.8 mg/dL (8.4-10.2); CREATININE, SERUM 1.48 mg/dL (0.72-1.25); POTASSIUM 3.4 mmol/L (3.5-5.1)
[2022-11-23] MEDS: HYDRALAZINE HCL 25 MG TAB PO SCH ×3 (09:51→22:06)
[2022-11-23 14:40] LABS: CREATINE KINASE MB 1.5 ng/mL (0-5.0)
[2022-11-23] MEDS ORDERED: HYDRALAZINE HCL 100 MG TABLET PO SCH (15:00)
[2022-11-23 16:23] LABS: CREATINE KINASE MB 1.9 ng/mL (0-5.0)
[2022-11-23] MEDS: APIXABAN 5 MG TABLET PO SCH (16:37)
[2022-11-23] MEDS: SERTRALINE HCL 100 MG TAB PO SCH (16:37)
[2022-11-23] MEDS: BUSPIRONE HCL 5 MG TAB PO SCH (16:38)
[2022-11-23] MEDS: METOPROLOL TARTRATE 25 MG TAB PO SCH (16:41)
[2022-11-23] MEDS ORDERED: NON-FORMULARY MEDICATION (Buspirone Hcl 15 MG) PO SCH (17:00)
[2022-11-23] MEDS ORDERED: ATORVASTATIN 40 MG TAB PO SCH (21:00)
[2022-11-23] MEDS ORDERED: NON-FORMULARY MEDICATION ([Atorvastatin] 40 MG) PO SCH (21:00)
[2022-11-24] VITALS: BP 135/89
[2022-11-24 04:00] VITALS: BP 142/92
[2022-11-24 08:00] VITALS: BP 142/92
[2022-11-24 08:23] VITALS: BP 155/104
[2022-11-24] MEDS ORDERED: CLOPIDOGREL BISULFATE 75 MG TAB PO SCH (09:00)
[2022-11-24] MEDS ORDERED: PANTOPRAZOLE SOD 40 MG TABEC PO SCH (09:00)
[2022-11-24] MEDS ORDERED: ARIPIPRAZOLE 5 MG TABLET PO SCH (09:00)
[2022-11-24] MEDS ORDERED: NON-FORMULARY MEDICATION (Aripiprazole (Abilify) 5 MG) PO SCH (09:00)
[2022-11-24] MEDS: BUSPIRONE HCL 5 MG TAB PO SCH (09:45)
[2022-11-24] MEDS: METOPROLOL TARTRATE 25 MG TAB PO SCH (09:46)
[2022-11-24] MEDS: APIXABAN 5 MG TABLET PO SCH (09:46)
[2022-11-24] MEDS: SERTRALINE HCL 100 MG TAB PO SCH (09:46)
[2022-11-24] MEDS: HYDRALAZINE HCL 25 MG TAB PO SCH (09:46)
== END 2022-11-24 10:45 | disposition home or self-care (01) | DRG 312 ==
LOC: ER 08:13 → ERHOLD 10:06 → MED/SURG3 14:24 → OBSVTOIN 11-24 09:58
PROVIDERS: ADMIT Internal Medicine; ATTEND Internal Medicine
DX: R55 Syncope and collapse (principal); I13.0 Hypertensive heart and chronic kidney disease with heart failure and stage 1 through stage 4 chronic kidney disease, or unspecified chronic kidney disease; I50.32 Chronic diastolic (congestive) heart failure; Z68.42 Body mass index [BMI] 45.0-49.9, adult; N18.30 Chronic kidney disease, stage 3 unspecified; E11.22 Type 2 diabetes mellitus with diabetic chronic kidney disease; E66.01 Morbid (severe) obesity due to excess calories; F32.A Depression, unspecified; I48.91 Unspecified atrial fibrillation; I25.2 Old myocardial infarction; J45.909 Unspecified asthma, uncomplicated; M54.9 Dorsalgia, unspecified; G89.29 Other chronic pain; I45.10 Unspecified right bundle-branch block; I25.10 Atherosclerotic heart disease of native coronary artery without angina pectoris; D63.1 Anemia in chronic kidney disease; M17.0 Bilateral primary osteoarthritis of knee; R29.6 Repeated falls; H91.90 Unspecified hearing loss, unspecified ear; Z20.822 Contact with and (suspected) exposure to COVID-19; Z79.01 Long term (current) use of anticoagulants; Z95.5 Presence of coronary angioplasty implant and graft; Z60.2 Problems related to living alone; E86.0 Dehydration
CPT/HCPCS: 0223U; 36415; 70450; 71045; 80053; 82550; 82553; 83735; 83880; 84484; 85025; 85610; 85730; 93005; 94799; 99284; G0378

== ENCOUNTER 2022-11-28 14:04 | Inpatient (IN) | payer OTHER ==
[~2022-11-28] VITALS: Ht 185.4 cm; Wt 157.4 kg
[2022-11-28] MEDS ORDERED: SODIUM CHLORIDE FLUSH 10 ML SYR IV PRN (14:15)
[2022-11-28 14:28] LABS: BASOPHILS % 0.5 % (0.0-1.0); EOSINOPHILS # (AUTO) 0.2 (0.0-0.4); EOSINOPHILS % 3.1 % (0.0-6.0); HEMATOCRIT 43.3 % (38.2-49.6); HEMOGLOBIN 13.6 g/dL (14.0-18.0); LYMPHOCYTES # (AUTO) 1.5 (1.0-3.2); LYMPHOCYTES % 19.8 % (18.0-39.1); MEAN CORPUSCULAR HEMOGLOBIN 28.3 pg (28-32); MEAN CORPUSCULAR HGB CONC 31.4 g/dL (31-35); MEAN CORPUSCULAR VOLUME 90.2 fL (81-99); MONOCYTES # (AUTO) 0.5 (0.2-0.8); MONOCYTES % 6.4 % (4.4-11.3); NEUTROPHILS # (AUTO) 5.1 (2.1-6.9); NEUTROPHILS % 69.7 % (38.7-80.0); PLATELET COUNT 201 x10e3/uL (140-360)
[2022-11-28 14:46] LABS: ALBUMIN 3.3 g/dL (3.5-5.0); ALBUMIN/GLOBULIN RATIO 0.9 (0.8-2.0); ANION GAP 15.6 mmol/L (8-16); CALCIUM 8.8 mg/dL (8.4-10.2); CREATININE, SERUM 1.65 mg/dL (0.72-1.25); POTASSIUM 3.6 mmol/L (3.5-5.1)
[2022-11-28] MEDS ORDERED: ASPIRIN 81 MG CHEW TAB PO ONE (18:30)
[2022-11-28] MEDS ORDERED: SODIUM CHLORIDE FLUSH 10 ML SYR INJ PRN (18:30)
[2022-11-28 20:00] VITALS: BP 140/92
[2022-11-28 20:03] VITALS: BP 140/92
[2022-11-28 20:15] VITALS: BP 140/92
[2022-11-29] VITALS (7 sets, daily range): BP systolic 123–134; BP diastolic 77–92
[2022-11-29 01:54] LABS: CREATINE KINASE MB 1.3 ng/mL (0-5.0)
[2022-11-29 06:12] LABS: BASOPHILS # (AUTO) 0.1 (0.0-0.1); BASOPHILS % 0.7 % (0.0-1.0); EOSINOPHILS # (AUTO) 0.3 (0.0-0.4); EOSINOPHILS % 4.9 % (0.0-6.0); HEMATOCRIT 39.5 % (38.2-49.6); HEMOGLOBIN 12.4 g/dL (14.0-18.0); LYMPHOCYTES # (AUTO) 1.1 (1.0-3.2); LYMPHOCYTES % 16.5 % (18.0-39.1); MEAN CORPUSCULAR HEMOGLOBIN 28.5 pg (28-32); MEAN CORPUSCULAR HGB CONC 31.4 g/dL (31-35); MEAN CORPUSCULAR VOLUME 90.8 fL (81-99); MONOCYTES # (AUTO) 0.5 (0.2-0.8); MONOCYTES % 7.4 % (4.4-11.3); NEUTROPHILS # (AUTO) 4.7 (2.1-6.9); NEUTROPHILS % 70.1 % (38.7-80.0); PLATELET COUNT 181 x10e3/uL (140-360); RED BLOOD COUNT 4.35 x10e6/uL (4.3-5.7); RED CELL DISTRIBUTION WIDTH 14.1 % (11.7-14.4)
[2022-11-29 06:42] LABS: ALBUMIN 2.8 g/dL (3.5-5.0); ALBUMIN/GLOBULIN RATIO 0.9 (0.8-2.0); ANION GAP 13.5 mmol/L (8-16); CALCIUM 8.5 mg/dL (8.4-10.2); CREATININE, SERUM 1.67 mg/dL (0.72-1.25); POTASSIUM 3.5 mmol/L (3.5-5.1)
[2022-11-29 06:59] LABS: CREATINE KINASE MB 1.3 ng/mL (0-5.0)
[2022-11-29] MEDS: PANTOPRAZOLE SOD 40 MG TABEC PO SCH (08:45)
[2022-11-29] MEDS: SERTRALINE HCL 100 MG TAB PO SCH ×2 (08:45→15:37)
[2022-11-29] MEDS: ARIPIPRAZOLE 5 MG TABLET PO SCH (08:45)
[2022-11-29] MEDS: APIXABAN 5 MG TABLET PO SCH ×2 (08:46→15:37)
[2022-11-29] MEDS: CLOPIDOGREL BISULFATE 75 MG TAB PO SCH (08:46)
[2022-11-29] MEDS: BUSPIRONE HCL 5 MG TAB PO SCH ×2 (08:46→15:37)
[2022-11-29] MEDS ORDERED: METOPROLOL TARTRATE 25 MG TAB PO SCH (09:00)
[2022-11-29] MEDS: HYDRALAZINE HCL 100 MG TABLET PO SCH ×3 (11:57→20:51)
[2022-11-29 12:06] LABS: CREATINE KINASE MB 1.4 ng/mL (0-5.0)
[2022-11-29] MEDS: ATORVASTATIN 40 MG TAB PO SCH (20:51)
[2022-11-29] MEDS: TRAZODONE HCL 50 MG TAB PO SCH (20:51)
[2022-11-30] VITALS (7 sets, daily range): BP systolic 104–136; BP diastolic 62–96
[2022-11-30] MEDS: APIXABAN 5 MG TABLET PO SCH ×2 (09:06→16:50)
[2022-11-30] MEDS: CLOPIDOGREL BISULFATE 75 MG TAB PO SCH (09:07)
[2022-11-30] MEDS: HYDRALAZINE HCL 100 MG TABLET PO SCH ×3 (09:07→22:38)
[2022-11-30] MEDS: PANTOPRAZOLE SOD 40 MG TABEC PO SCH (09:07)
[2022-11-30] MEDS: ARIPIPRAZOLE 5 MG TABLET PO SCH (09:07)
[2022-11-30] MEDS: SERTRALINE HCL 100 MG TAB PO SCH ×2 (09:07→16:50)
[2022-11-30] MEDS: BUSPIRONE HCL 5 MG TAB PO SCH ×2 (09:07→16:50)
[2022-11-30] MEDS: ATORVASTATIN 40 MG TAB PO SCH (22:38)
[2022-11-30] MEDS: TRAZODONE HCL 50 MG TAB PO SCH (22:39)
[2022-12-01] VITALS (10 sets, daily range): BP systolic 115–163; BP diastolic 72–96
[2022-12-01] MEDS: ARIPIPRAZOLE 5 MG TABLET PO SCH (08:46)
[2022-12-01] MEDS: APIXABAN 5 MG TABLET PO SCH ×2 (08:47→17:34)
[2022-12-01] MEDS: SERTRALINE HCL 100 MG TAB PO SCH ×2 (08:47→17:34)
[2022-12-01] MEDS: CLOPIDOGREL BISULFATE 75 MG TAB PO SCH (08:47)
[2022-12-01] MEDS: HYDRALAZINE HCL 100 MG TABLET PO SCH ×3 (08:47→21:13)
[2022-12-01] MEDS: PANTOPRAZOLE SOD 40 MG TABEC PO SCH (08:47)
[2022-12-01] MEDS: BUSPIRONE HCL 5 MG TAB PO SCH ×2 (08:49→17:34)
[2022-12-01] MEDS ORDERED: TRAZODONE HCL50 MG PO (19:48)
[2022-12-01] MEDS: TRAZODONE HCL 50 MG TAB PO SCH (21:12)
[2022-12-01] MEDS: ATORVASTATIN 40 MG TAB PO SCH (21:12)
== END 2022-12-01 21:54 | disposition home or self-care (01) | DRG 149 ==
LOC: ER 14:07 → ERHOLD 18:19 → MED/SURG2 19:53 → OBSVTOIN 12-01 10:08
PROVIDERS: ADMIT Internal Medicine; ATTEND Internal Medicine
DX: R42 Dizziness and giddiness (principal); I48.19 Other persistent atrial fibrillation; I13.0 Hypertensive heart and chronic kidney disease with heart failure and stage 1 through stage 4 chronic kidney disease, or unspecified chronic kidney disease; I50.32 Chronic diastolic (congestive) heart failure; Z68.42 Body mass index [BMI] 45.0-49.9, adult; Z79.01 Long term (current) use of anticoagulants; F32.A Depression, unspecified; I25.10 Atherosclerotic heart disease of native coronary artery without angina pectoris; I25.2 Old myocardial infarction; R29.6 Repeated falls; H91.90 Unspecified hearing loss, unspecified ear; M10.9 Gout, unspecified; Z91.51 Personal history of suicidal behavior; M17.0 Bilateral primary osteoarthritis of knee; E11.9 Type 2 diabetes mellitus without complications; Z74.09 Other reduced mobility; N18.30 Chronic kidney disease, stage 3 unspecified; E66.01 Morbid (severe) obesity due to excess calories; Z95.5 Presence of coronary angioplasty implant and graft; Z79.899 Other long term (current) drug therapy
CPT/HCPCS: 36415; 71045; 80053; 82550; 82553; 82948; 83880; 84484; 85025; 93005; 93880; 99284; G0378